=== PATIENT | female | born 1965 ===

== ENCOUNTER 2020-04-04 10:18 | Outpatient (REF) | payer BC, SELFPAY ==
[2020-04-04 14:15] LABS: Alanine Aminotransferase 12 U/L (0-31); Albumin Level 4.1 g/dL (3.5-5.0); Alkaline Phosphatase 62 U/L (39-117); Aspartate Amino Transferase 15 U/L (5-31); Bilirubin Total 0.3 mg/dL (0.0-1.0); Blood Urea Nitrogen 12 mg/dL (9-16); Cholesterol 244 mg/dL; Estimated Glomerular Filt Rate > 60; Glucose Fasting 92 mg/dL (60-99); HDL Cholesterol 52 mg/dL; LDL Cholesterol Calculated 175 mg/dl; Total Protein 6.6 g/dL (6.5-8.0); Triglycerides 86 mg/dL
[2020-04-04 14:25] LABS: Anion Gap 13 (12-20); Calcium 10.2 mg/dL (8.4-10.2); Carbon Dioxide 27 mmol/L (22-29); Chloride 110 mmol/L (96-108); Potassium 4.5 mmol/l (3.3-5.1); Sodium 145 mmol/L (135-145)
== END 2020-04-04 10:19 | disposition home or self-care (01) ==
LOC: HO.WFDLDS 10:18
PROVIDERS: Visit Provider Family Medicine
DX: E78.00 Pure hypercholesterolemia, unspecified (principal); R73.01 Impaired fasting glucose
CPT/HCPCS: 80053; 80061

== ENCOUNTER → 2020-08-10 08:07 | Outpatient (BNVA) | payer BC, SELFPAY | PROVIDERS: PCP Family Medicine; Referring Provider Family Medicine; Visit Provider Student in an Organized Health Care Education/Training Program ==

== ENCOUNTER 2020-08-29 09:36 | Outpatient (REF) | payer BC, SELFPAY ==
--- NOTE | ~2020-08-29 | XR_ITS ---
EXAMINATION: XR KNEE, LEFT CLINICAL INFORMATION: Osteoarthritis COMPARISON: Previous x-ray June 2018 and February 2017 TECHNIQUE: Four views of the left knee. FINDINGS: Bone alignment is normal. No fracture or dislocation is seen. There are 2 laterally placed screws in the tibial plateau. There is a cement seen in the lateral tibial plateau and proximal lateral tibial metaphysis. This appears unchanged from previous exam. The joint spaces are normal. There is no joint effusion. XR/XR knee LT 3V IMPRESSION: Stable postsurgical changes to the knee.
--- NOTE | ~2020-08-29 | XR_ITS ---
EXAMINATION: BILATERAL HAND X-RAY CLINICAL INFORMATION: Primary osteoarthritis COMPARISON: Previous x-ray February 2017 TECHNIQUE: 3 views of each hand FINDINGS: Right: Bone alignment is normal. No fracture or dislocation is seen. There is arthritis at the DIP joint with joint space narrowing and osteophyte formation. There are small osteophytes at the DIP joint of the second and third fingers as well. Joint spaces are otherwise normal. Soft tissues are normal. Left: Bone alignment is normal. No fracture or dislocation is seen. There are small osteophytes at the DIP joints of the second, third and fifth fingers. Joint spaces are otherwise normal. Soft tissues are normal. XR/XR hand RT min 3V IMPRESSION: Arthritis at the DIP joints, right greater than left.
--- NOTE | ~2020-08-29 | XR_ITS ---
EXAMINATION: XR CERVICAL SPINE CLINICAL INFORMATION: Spondylosis COMPARISON: Previous exam May 2017 TECHNIQUE: 3 views of the cervical spine were obtained. FINDINGS: Bone alignment is normal. No fracture or dislocation is seen. There is degenerative spondylosis and degenerative disc disease at C5-C6. Disc spaces are otherwise normal. Prevertebral soft tissues are normal. XR/XR cervical spine 2V IMPRESSION: Degenerative changes at C5-C6.
--- NOTE | ~2020-08-29 | XR_ITS ---
EXAMINATION: BILATERAL HAND X-RAY CLINICAL INFORMATION: Primary osteoarthritis COMPARISON: Previous x-ray February 2017 TECHNIQUE: 3 views of each hand FINDINGS: Right: Bone alignment is normal. No fracture or dislocation is seen. There is arthritis at the DIP joint with joint space narrowing and osteophyte formation. There are small osteophytes at the DIP joint of the second and third fingers as well. Joint spaces are otherwise normal. Soft tissues are normal. Left: Bone alignment is normal. No fracture or dislocation is seen. There are small osteophytes at the DIP joints of the second, third and fifth fingers. Joint spaces are otherwise normal. Soft tissues are normal. XR/XR hand LT min 3V IMPRESSION: Arthritis at the DIP joints, right greater than left.
[2020-08-29 10:18] LABS: MANUAL DIFF FLAG NO
[2020-08-29 10:21] LABS: Basophils Percent Auto 0.2 % (0-2); Eosinophils Absolute Auto 0.1 X10*3/uL (0.0-0.4); Eosinophils Percent Auto 1.9 % (0-4); Hematocrit 42.1 % (37-47); Hemoglobin 13.8 g/dl (12.0-16.0); Lymphocytes Absolute Auto 1.9 X10*3/uL (1.2-4.9); Lymphocytes Percent Auto 45.2 % (20-40); Mean Corpuscular HGB Conc 32.8 g/dl (31.0-35.0); Mean Corpuscular Hemoglobin 31.2 pg (27.0-33.0); Mean Corpuscular Volume 95.2 fL (80-98); Mean Platelet Volume 9.9 fL (9.4-12.3); Monocytes Absolute Auto 0.3 X10*3/uL (0.1-1.2); Neutrophils Absolute Auto 1.9 X10*3/uL (2.0-8.3); Neutrophils Percent Auto 44.7 % (45-73); Platelet Count 232 X10*3/uL (160-400); Red Blood Count 4.42 X10*6/uL (4.20-5.50); Red Cell Distribution Width 12.4 % (11.0-16.0); White Blood Count 4.1 X10*3/uL (4.8-10.8)
[2020-08-29 11:05] LABS: Erythrocyte Sedimentation Rate 8 MM/HR (0-20)
[2020-08-29 11:08] LABS: Alanine Aminotransferase 12 U/L (0-31); Albumin Level 4.1 g/dL (3.5-5.0); Alkaline Phosphatase 63 U/L (39-117); Anion Gap 10 (12-20); Aspartate Amino Transferase 16 U/L (5-31); Bilirubin Total 0.5 mg/dL (0.0-1.0); Blood Urea Nitrogen 12 mg/dL (9-16); C Reactive Protein 0.05 mg/dL (< or = 0.50); Calcium 10.1 mg/dL (8.4-10.2); Carbon Dioxide 29 mmol/L (22-29); Chloride 108 mmol/L (96-108); Cholesterol 251 mg/dL; Estimated Glomerular Filt Rate > 60; Glucose Random 94 mg/dL (60-115); HDL Cholesterol 57 mg/dL; LDL Cholesterol Calculated 170 mg/dl; Potassium 4.2 mmol/L (3.3-5.1); Rheumatoid Factor < 15.0 IU/mL (<15.0); Sodium 143 mmol/L (135-145); Total Protein 6.5 g/dL (6.5-8.0); Triglycerides 121 mg/dL
[2020-08-31 01:57] LABS: Cyclic Citrullinated Peptide <16 UNITS
== END 2020-08-29 09:37 | disposition home or self-care (01) ==
LOC: HO.LAB 09:36
PROVIDERS: PCP Family Medicine; Visit Provider Student in an Organized Health Care Education/Training Program
DX: Z00.00 Encounter for general adult medical examination without abnormal findings (principal); E78.5 Hyperlipidemia, unspecified; M47.812 Spondylosis without myelopathy or radiculopathy, cervical region; M19.041 Primary osteoarthritis, right hand; M19.042 Primary osteoarthritis, left hand; M17.12 Unilateral primary osteoarthritis, left knee
CPT/HCPCS: 36415; 72040; 73130; 73562; 80053; 80061; 85025; 85652; 86140; 86200; 86431

== ENCOUNTER 2020-09-21 15:00 | Outpatient (RCR) | payer BC, SELFPAY ==
--- NOTE | 2020-09-04 15:39 | MHC.OT.OEV ---
[address] [phone] F: [phone] Occupational Therapy Evaluation Diagnosis: R OA Date of Onset: 08/13/18 Date of Surgery: Attending Provider: Regino Ayala Prescribed Treatment: Tatum and neville BENAVIDES Follow Up Appointment: History of Current Condition: Pt reports pain in R hand for over 2 years, particularly in the IPs of the thumb and small finger. Imaging on 08/29/20 reveals arthritis at the DIP joints, right greater than left. 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 Difficulties with toilet hygiene. Sleep: Neck pain with sleeping, no hand pain with sleep Driving: No problems Pain Assessment Pain Score: 6-10/10 Pain Scale Used: Numeric (0 - 10) Pain Location and Description: Achy/throbbing pain; SF/thumb>IF, MF, RF Aggravating Factors: Using R hand; opening jars/containers/crafting Alleviating Factors: Takes tylenol for pain, not using heat/ice for pain Skin and Soft Tissue Assessment Skin and Soft Tissue: Comments: Osteophyte in R SF DIP Sensory Assessment Temperature: WFL Light Touch: WFL Edema Assessment Upper Extremity: Right Impaired Lower Extremity: Comments: R digits DIP: SF 5.3 cm RF 5.0 cm LF 5.3 cm IF 5.3 cm L digits DIP: SF 4.5 cm RF 4.8 cm LF 5.0 cm IF 5.0 cm Circumference of MP D2-D5: 19.0 cm L; 19.7 cm R Dexterity Assessment Dexterity: WFL Comments: functional dexterity test: R 23 sec (functional) , 23 sec (functional) refrained use of SF with R hand AROM(PROM) Strength Wrist Flexion: WFL Extension: WFL Ulnar Deviation: Radial Deviation: Comments: Flexion: Extension: Ulnar Deviation: Radial Deviation: Comments: Thumb Thumb CMC Flexion: Thumb MCP Flexion: Thumb IP Flexion: Radial Abduction: Palmar Abduction: [place] (Kapandji 0-10): Comments: Continue to assess at next appointment Digits Index MCP: PIP: DIP: Long MCP: PIP: DIP: Ring MCP: PIP: DIP: Small MCP: PIP: R 80; L 82 DIP: R 50; L 62 Comments: Gross Grasp: R 49 lbs, L 65 lbs Lateral Pinch: R 5 lbs, L 7 lbs Two-Point Pinch: R 7 lbs, L 8 lbs Three-Jaw Ryne: R 12 lbs, L 10 lbs Comments: R gross grasp refraining use of SF R thumb pain with pinches Patient Education Primary Language: Moldovan Operations Section Manager Required: No Current Knowledge: Understands information with skills for self-management Teaching Method: Demonstration Handouts Verbal Education Needs Identified on Evaluation: ADL's Disease Information Equipment Use Exercise Pain Safety How did patient/family demonstrate learning? Patient demonstrates Patient verbalizes Barriers to Learning: None Readiness for Learning: Accepting Who was educated? Patient Comments: Plan of Care Assessment: Anali is a 54 year old, right hand dominant female who has been having OA pain for over 2 years with the R hand > L, as well as arthritis in the neck and knee. 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 She is independent with ADLs/IADLs, however has recently had an increase in pain with self-care activities and work. She limits the use of her R SF with functional tasks due to pain and has decreased strength in the R hand. She is motivated and receptive to education of OA care. She would benefit from skilled OT to maximize independence and increase functional use of the dominant right hand. STG Duration: 4 weeks Short Term Goals: Ind HEP Ind heat/ice use Ind joint protection techniques Ind orthosis wear and compliance Report pain <3/10 with ADLs/IADLs Pt will incorporate R SF use to carry <10 lbs Gross grasp > 60 lbs LTG Duration: see above Custodial Goals: Frequency and Duration: The patient will be seen 2x/week for 4 weeks Treatment Plan: Therapeutic Exercise Therapeutic Activity Home Exercise Program Splinting Neuro Re-ed Patient Education Desensitization/Sensory Re-ed Edema Control ADL Training Ultrasound NMES Iontophoresis Paraffin Fluidotherapy MHP Cold Packs Joint Mobilization Soft Tissue Mobilization Kinesiotaping Other (see comments) Electronically Signed By: Veronica Ugalde OT/s Reviewed/agree with student documentation: Yes Therapist: Melissa Reed OTR/L Please sign and return to therapist, Thank you for your referral.
--- NOTE | 2020-10-02 08:22 | MHC.OT.DC ---
[address] [phone] F: [phone] Occupational Therapy Discharge Note Provider: Regino Ayala Diagnosis: R OA Date of Evaluation: 09/04/20 Date of Discharge: 10/02/20 Treatments to Date: 3 Cancellations to Date: 4 No Shows to Date: Discharge Status: Improved Function Independent with HEP Patient Elected to Stop Discharge Summary: KHRIS HAD ATTENDED THREE OT SESSIONS. A THUMB OPPOSITION SPLINT WAS FABRICATED AND Pt REPORTS RELIEF WITH USE. SHE STATES SHE HAS LOW PAIN AND TENDERNESS AT THE [facility] [place]. SHE DEMO GOOD UNDERSTANDING OF HER HEP AND HAD EMERGING SELF MANAGEMENT SKILLS. KHRIS ELECTED TO DISCHARGE HERSELF FROM OUTPATIENT OT SERVICES, SHE HAD REPORTED THAT ATTENDING TREATMENT SESSIONS WERE DIFFICULT WITH HER WORK SCHEDULE. WILL D/C OT SERVICES AT THIS TIME. Electronically Signed By: TAYLOR BALL OTR/L Reviewed/agree with student documentation: N/A Therapist: Please Sign and return to therapist, thank you for your referral.
== END 2020-10-02 08:23 | disposition other institution (70) ==
LOC: HO.OT 15:00
PROVIDERS: Visit Provider Student in an Organized Health Care Education/Training Program
DX: M19.041 Primary osteoarthritis, right hand (principal)
CPT/HCPCS: 29130; 97018; 97110; 97165; 97760

== ENCOUNTER 2020-09-27 14:00 | Outpatient (RCR) | payer BC, SELFPAY ==
--- NOTE | 2020-09-07 16:31 | MHC.PT.EP ---
[facility] [place] Office [place] Office [place] Office [address] Greg Mcclellan [address] [phone] F: [phone] F: [phone] F: [phone] F: [phone] Physical Therapy Plan of Care Date of Evaluation: 09/07/20 Date of Surgery: NA Diagnosis: SPONDYLOSIS CERVICAL REGION Assessment: Pt IS 54 YO F REFERRED TO PT FROM DR GASTON WITH CERVICAL SPONDYLOSIS. PRESENTS WITH C/O NECK AND UT PAIN WITHOUT REFERRAL OR PARESTHESIA. Pt IS TTP IN THESE AREAS. HAS A SLIGHT FORWARD HEAD AND ROUNDED SHLDERS POSTURE. Pt SHOULD BENEFIT FROM PT TO HELP DECREASE UT/CERV TIGHTNESS AND HELP TO INCREASE UPPER BODY STRENGTH.. OF NOTE, Pt IS BEING SEEN IN OT FOR R HAND AND ALSO C/O L KNEE PAIN (REPORTS HX OF SURGERY IN PAST). ED THAT THIS CAN BE ADDRESSED IN PT IN FUTURE IF NEEDED. Frequency and Duration: The patient will be seen 2X/WK X 6 WKS Short Term Goals: 1. INCREASED POSTURE AWARENESS AND AWARENESS NECK CARE 2. I HEP WITH DC EX PLAN Block Feeder Goals: 1. IMPROVED SPADI 2. DECREASED CERV PAIN AT LEAST 50% WITH ADLS Treatment Plan: Modalities to reduce pain, spasms and effusion. Manual therapy to restore motion and function. Therapeutic exercise to improve strength and flexibility. Neuromuscular re-education for posture and balance. Therapeutic activities to return to functional activities of daily living. Electronically signed by: DELROY FRAZIER PT Please sign and return to therapist. Thank you for your referral.
--- NOTE | 2020-09-28 12:47 | MHC.PT.DC ---
[facility] [place] Office [place] Office [place] Office [address] Greg Mcclellan [address] [phone] F: [phone] F: [phone] F: [phone] F: [phone] Physical Therapy Discharge Report Diagnosis: SPONDYLOSIS CERVICAL REGION Date of Surgery: NA Date of Evaluation: 09/07/20 Date of Discharge: 09/28/20 Treatments to Date: 4 Cancellations to Date: 1 No Shows to Date: Discharge Status: Patient Elected to Stop Discharge Summary: Pt LEFT VOICEMAIL MESSAGE CANCELLING ALL APPOINTMENTS. STATUS UNKNOWN. Electronically signed by: JOSE R PRESLEY PT, DPT Please sign and return to therapist. Thank you for your referral.
== END 2020-09-28 16:16 | disposition other institution (70) ==
LOC: HO.PT 14:00
PROVIDERS: PCP Family Medicine; Visit Provider Student in an Organized Health Care Education/Training Program
DX: M47.812 Spondylosis without myelopathy or radiculopathy, cervical region (principal)
CPT/HCPCS: 97110; 97140; 97161

== ENCOUNTER 2021-08-20 08:43 | Outpatient (REF) | payer BC, SELFPAY ==
--- NOTE | ~2021-08-20 | MM_ITS ---
EXAMINATION: MM SCREENING DIGITAL BREAST TOMOSYNTHESIS, BILATERAL CLINICAL INFORMATION: Screening. Asymptomatic. The lifetime risk of breast cancer based on the Tyrer-Cuzick Model is 7%. COMPARISON: Mammography: 05/26/2019 (new baseline) TECHNIQUE: Digital breast tomosynthesis is performed in both the craniocaudal and mediolateral oblique views along with computer-aided detection (CAD). Synthesized 2D images are generated from the tomosynthesis. FINDINGS: There are scattered areas of fibroglandular density (ACR BI-RADS breast composition Category b). There are no significant masses, abnormal calcifications, or other abnormalities. Scattered bilateral asymmetries are similar to the new baseline exam. The axilla and skin contours are unremarkable. No significant changes. MM/MM tomosynthesis screening BI IMPRESSION: There are no significant changes from prior new baseline study. ASSESSMENT: BI-RADS 2: Benign RECOMMENDATION: Routine annual mammography screening. This patient's information was entered into a reminder system with a target due date for their next mammogram.
== END 2021-08-20 08:44 | disposition home or self-care (01) ==
LOC: HO.MAMMO 08:43
PROVIDERS: PCP Family Medicine; Visit Provider Family Medicine
DX: Z12.31 Encounter for screening mammogram for malignant neoplasm of breast (principal)
CPT/HCPCS: 77061; 77063; 77065; 77067

== ENCOUNTER 2021-12-23 09:11 | Outpatient (REF) | payer BC, SELFPAY ==
[2021-12-26 18:26] LABS: TS Negative Control Passed; TS Panel A 0; TS Panel B 1; TS Positive Control Passed; TSpotTB Negative (Negative)
== END 2021-12-23 09:12 | disposition home or self-care (01) ==
LOC: HO.LAB 09:11
PROVIDERS: PCP Family Medicine; Visit Provider Family Medicine
DX: Z11.1 Encounter for screening for respiratory tuberculosis (principal)
CPT/HCPCS: 36415; 86481

== ENCOUNTER 2022-03-17 06:37 | Outpatient (REF) | payer BC, SELFPAY ==
[2022-03-17 07:21] LABS: Appearance Urine Cloudy; Color Urine Yellow; Glucose Urine UA Negative (Negative); Leukocyte Esterase Urine Negative (Negative); Nitrite Urine Negative (Negative); PH 5.5 (5.0-9.0); Specific Gravity - Urine >= 1.030 (1.005-1.025); Urine Blood Negative (Negative); Urine Ketones Negative (Negative); Urine Protein Negative (Neg-Trace)
[2022-03-17 08:06] LABS: Alanine Aminotransferase 14 U/L (0-31); Albumin Level 4.1 g/dL (3.5-5.0); Alkaline Phosphatase 56 U/L (39-117); Anion Gap 12 (12-20); Aspartate Amino Transferase 15 U/L (5-31); Bilirubin Total < 0.2 mg/dL (0.0-1.0); Blood Urea Nitrogen 15 mg/dL (9-16); Calcium 10.6 mg/dL (8.4-10.2); Carbon Dioxide 26 mmol/L (22-29); Chloride 110 mmol/L (96-108); Cholesterol 263 mg/dL; Estimated Glomerular Filt Rate > 60; Glucose Fasting 99 mg/dL (60-99); HDL Cholesterol 55 mg/dL; LDL Cholesterol Calculated 193 mg/dl; Potassium 4.4 mmol/L (3.3-5.1); Sodium 144 mmol/L (135-145); Total Protein 6.5 g/dL (6.5-8.0); Triglycerides 78 mg/dL
[2022-03-17 09:07] LABS: Creatinine Urine 189.95 mg/dL; Microalbum/Creatinine Ratio Ur 7.3 ug/mg cr
== END 2022-03-17 06:38 | disposition home or self-care (01) ==
LOC: HO.LAB 06:37
PROVIDERS: PCP Family Medicine; Visit Provider Family Medicine
DX: Z00.00 Encounter for general adult medical examination without abnormal findings (principal); I10 Essential (primary) hypertension
CPT/HCPCS: 36415; 80053; 80061; 81003; 82043; 84443

== ENCOUNTER 2022-04-15 | Outpatient (REF) | payer BC, SELFPAY ==
--- NOTE | ~2022-04-15 | XR_ITS ---
EXAMINATION: XR KNEE, LEFT XR BILATERAL KNEE STANDING CLINICAL INFORMATION: Pain. COMPARISON: None. TECHNIQUE: Bilateral AP knee standing. Left knee 2 views. FINDINGS: Bilateral AP Knee Standing: The the medial and lateral compartment joint space both knees are maintained normal. There are solitary screws traversing the left proximal tibia with cement stabilizing proximal tibial fracture. No new acute fracture or bony abnormality seen. Left Knee: The patellofemoral compartment joint space is maintained normal. The distal femoral condyles and the proximal tibial plateau alignment is normal. Again visualized are 2 screws and cement in the proximal tibia for an old intervention. XR/XR knee LT 2V IMPRESSION: Stable left lateral inserted proximal tibial screws and proximal tibial cement compared to 08/29/2020. No new findings.
--- NOTE | ~2022-04-15 | XR_ITS ---
EXAMINATION: XR KNEE, LEFT XR BILATERAL KNEE STANDING CLINICAL INFORMATION: Pain. COMPARISON: None. TECHNIQUE: Bilateral AP knee standing. Left knee 2 views. FINDINGS: Bilateral AP Knee Standing: The the medial and lateral compartment joint space both knees are maintained normal. There are solitary screws traversing the left proximal tibia with cement stabilizing proximal tibial fracture. No new acute fracture or bony abnormality seen. Left Knee: The patellofemoral compartment joint space is maintained normal. The distal femoral condyles and the proximal tibial plateau alignment is normal. Again visualized are 2 screws and cement in the proximal tibia for an old intervention. XR/XR knee standing BI IMPRESSION: Stable left lateral inserted proximal tibial screws and proximal tibial cement compared to 08/29/2020. No new findings.
== END 2022-04-15 00:01 | disposition home or self-care (01) ==
LOC: HO.HOSX
PROVIDERS: Visit Provider Physician Assistant
DX: M25.562 Pain in left knee (principal)
CPT/HCPCS: 73560; 73565

== ENCOUNTER 2022-06-27 07:54 | Outpatient (REF) | payer BC, SELFPAY ==
[2022-06-27 09:06] LABS: Cholesterol 246 mg/dL; HDL Cholesterol 61 mg/dL; LDL Cholesterol Calculated 163 mg/dl; Triglycerides 110 mg/dL
== END 2022-06-27 07:55 | disposition home or self-care (01) ==
LOC: HO.LAB 07:54
PROVIDERS: PCP Family Medicine; Visit Provider Family Medicine
DX: Z00.00 Encounter for general adult medical examination without abnormal findings (principal)
CPT/HCPCS: 36415; 80061

== ENCOUNTER 2022-08-21 07:54 | Emergency (ER) | payer BC, SELFPAY ==
--- NOTE | ~2022-08-21 | CT_ITS ---
EXAMINATION: CT ABDOMEN AND PELVIS WITH CONTRAST CLINICAL INFORMATION: Elevated lipase with abdominal pain and vomiting COMPARISON: None TECHNIQUE: Multidetector volumetric images were obtained from the superior aspect of the liver through the pubic symphysis following administration 85 mL of Omnipaque 350 intravenous contrast. Sagittal and coronal reformatted images were obtained on the technologist's workstation. Oral contrast: No This CT examination was performed using dose optimization techniques as appropriate, variously including the following: *Automated exposure control *Adjustment of mA and/or kV according to patient size (this includes techniques or standardized protocols for targeted exams where dose is matched to indication/reason for exam; i.e. extremities or head) *Use of iterative reconstruction technique DLP: 593 mGy-cm FINDINGS: LUNG BASES: The visualized lung bases are unremarkable. LIVER, GALLBLADDER, AND BILIARY TREE: The liver is normal in size, shape, and attenuation. Multiple benign appearing simple cysts are present in the liver with the largest measuring 2.4 cm. The smaller cysts are indeterminate because of their tiny size. There is one liver mass seen in the right lobe of the liver just beneath the diaphragm that measures 1.3 cm and does not measure water density and has a punctate calcification associated with it. This could represent a hemangioma but is indeterminate. No other focal hepatic lesion is seen. No biliary ductal dilatation is present. The gallbladder is unremarkable with no evidence of radiopaque gallstones, gallbladder wall thickening, or obvious pericholecystic inflammatory changes. PANCREAS: Unremarkable. SPLEEN: Unremarkable. ADRENAL GLANDS: Unremarkable. KIDNEYS AND URETERS: The kidneys are normal in size, shape, and attenuation. Small punctate 1 to 2 mm nonobstructing left lower pole renal calculus (3:36). No hydronephrosis, hydroureter, or additional calculi seen. No perinephric stranding. Benign Bosniak class I 1.5 cm right upper pole renal cyst which needs no additional imaging or follow-up. No solid renal masses. BLADDER: Unremarkable. GASTROINTESTINAL TRACT: The small and large bowel are unremarkable aside from scattered colonic diverticula without diverticulitis. The appendix is unremarkable. ABDOMINAL WALL: No significant hernia is appreciated. LYMPH NODES: No retroperitoneal lymphadenopathy. VASCULAR: The aorta and iliofemoral vessels are unremarkable. The celiac SMA and STEVEN are patent. Single renal arteries present bilaterally which are unremarkable. Phleboliths are noted in the left gonadal vein. Marked phleboliths are present in the pelvis PELVIC VISCERA: Uterus does not appear to be present. An abnormal adnexal mass is not seen. OSSEOUS STRUCTURES: Marked degenerative changes are seen at L5-S1 where there is a grade 1 anterolisthesis and bilateral L5 pars defects. CT/CT abdomen pelvis w IV con IMPRESSION: A cause for the patient's abdominal pain and elevated vomiting has not been found. Incidental note made of: 1. Multiple benign hepatic cysts. 2. 1.3 cm indeterminate mass in the right lobe of the liver. This could represent a hemangioma but is indeterminate. MRI would be the best test to provide an accurate diagnosis. 3. Small punctate nonobstructing left lower pole renal calculus. 4. Colonic diverticulosis without diverticulitis. 5. Degenerative changes L5-S1 with grade 1 anterolisthesis and bilateral L5 pars defects. Fleischner guidelines were followed.
[2022-08-21 08:07] VITALS: BP 149/84; PULSE 62; RESP 18; TEMP 36.8; O2SAT 99; BMI 27.2
--- NOTE | 2022-08-21 08:13 | ED_ITS ---
HPI - Abdominal Pain General Chief Complaint: Abdominal Pain Stated Complaint: Vomiting Time Seen by Provider: 08/21/22 08:09 Source: patient Mode of arrival: ambulatory Limitations: no limitations History of Present Illness HPI narrative: This is a 56-year-old female with a history of high cholesterol, anxiety, de pression who presents to the ER with complaints of generalized abdominal pain with multiple episodes of vomiting which began at 02:00 in addition to headache and chills. Patient denies diarrhea. She did move her bowels this morning and was normal. No urinary symptoms, fever, chest pain . Patient denies previous abdominal surgery. No sick contacts or recent travel. Patient reports multiple episodes of vomiting and unable to maintain p.o.. Emesis is nonbilious and nonbloody. Patient is unsure if she ate something that upset her stomach as she did have some fish last evening Related Data Home Medications Medication Instructions Recorded Confirmed biotin PO 04/15/22 06/30/22 Previous Rx's Medication Instructions Recorded atorvastatin 40 mg tablet 40 mg PO BEDTIME 90 days #90 tabs 06/30/22 buspirone 5 mg tablet 5 mg PO BEDTIME 30 days #30 tabs 06/30/22 fluoxetine 20 mg capsule 20 mg PO DAILY 90 days #90 caps 06/30/22 ondansetron 4 mg disintegrating 4 mg PO Q6H PRN nausea and 08/21/22 tablet vomiting #15 tabs Allergies Allergy/AdvReac Type Severity Reaction Status Date / Time No Known Allergies Allergy Verified 07/29/22 17:05 [No Known Allergies*] Review of Systems Review of Systems Yes all other systems are reviewed and are negative Constitutional: Reports no additional constitutional complaints, Denies body ache(s), Reports chills, Denies fever(s), Reports headache(s) and Denies weakness Eyes: Reports no additional eye complaints and Denies change in vision Reports system reviewed and no additional complaints, except as documented, Denies dizziness, Reports headache(s), Denies nasal congestion, Denies nasal d ischarge and Denies neck pain Cardiovascular: Reports no additional cardiovascular complaints, Denies chest pain, Denies leg edema and Denies dyspnea Respiratory: Reports no additional respiratory complaints, Denies cough and Denies dyspnea Gastrointestinal: Reports no additional gastrointestinal complaints, Reports abdominal pain, Denies diarrhea, Reports nausea and Reports vomiting Genitourinary: Reports no additional female genitourinary complaints and Denies urinary incontinence Musculoskeletal: Reports no additional musculoskeletal complaints, Denies back pain, Denies arthralgias, Denies joint swelling, Denies neck pain, Denies numbness and Denies tingling Skin/Breast: Reports system reviewed and no additional complaints, except as docu and Denies rash Reports system reviewed and no additional complaints, except as documented, Denies dizziness, Reports headache(s), Denies numbness, Denies tingling and Denies weakness PMFSH Past Medical History Attestation statement: The following information was validated with the patient. Source: old records reviewed and nursing notes reviewed Medical History Constipation Hypotension Osteoarthritis Spondylosis without myelopathy or radiculopathy, lumbar region Surgical History H/O tubal ligation H/O: hysterectomy (~2014) History of lumpectomy of left breast History of open reduction and internal fixation (ORIF) procedure (~2016) Hx of tonsillectomy Family History Family History Father Stomach cancer Mother Diabetes HTN (hypertension) Social History Social History Housing: Other Alcohol intake: current Patient Tobacco Use Status: Never used Tobacco Smoked in Last 30 Days: No e-Cigarette/Vaping Use: Never Used Second Hand Smoke Exposure: Yes Substance Use Type: Marijuana Advance Directives: Yes Advance Directives Information Provided: Yes Advance Directives on File: No service: No Current occupational status: employed 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 Current occupational exposures/hazards: No Cognitive needs: No Hearing needs: No Vision needs: No Physical Exam ED Vital Signs: Vital Signs - 24 hr 08/21/22 08:07 08/21/22 12:37 08/21/22 15:04 Temperature 98.2 F 99.0 F 99.5 F Pulse Rate 62 66 65 Respiratory Rate 18 14 12 Blood Pressure 149/84 H 135/81 131/57 L Pulse Oximetry 99 98 97 Oxygen Delivery Method Room Air Room Air Room Air BMI result Body Mass Index 27.2 Const General: cooperative, healthy appearing, comfortable and no acute distress Orientation/consciousness: patient oriented x3 Limitations: no limitations HENMT Head: Yes normal to inspection Ears: hearing grossly normal bilaterally Eyes General: appearance normal, both eyes and all related structures Pupils: Equal, round and reactive pupils present Neck Neck: Yes normal visual inspection, Yes full ROM, Yes no lymphadenopathy and Yes no meningeal signs Chest Chest palpation & inspection: normal inspection of the chest Resp Effort & Inspection: normal respiratory effort Auscultation: clear to auscultation bilaterally Cardio Rate: regular rate Rhythm: regular rhythm Peripheral pulses: Peripheral pulses 2+ throughout GI Inspection: Yes normal to inspection Palpation (GI): Soft to palpation and nontender Auscultation: normal bowel sounds General: Yes no CVA tenderness Back/Spine/Pelvis Back: no CVA tenderness Thoracic/Lumbar Spine: thoracic and lumbar spine normal to inspection Skin General skin exam: no rashes or lesions noted Neuro General: patient oriented x3, moves all extremities and no meningeal signs Cranial nerves: Yes Equal, round and reactive pupils present Cognition (Neuro): normal cognition Gait exam (Neuro): Normal gait present Extrem General: Yes normal to inspection, Yes no pedal edema and Yes no calf tenderness Course Course Course Narrative: Patient with elevated lipase and continued abdominal pain and vomiting. Will check CT scan to rule out acute pancreatitis Reevaluation(s) Reevaluation #1: 1300-Patient reports continued pain/vomiting. Refusing IV narcotics. Will give benadryl/reglan. CT abdomen/pelvis shows no acute finding. Will re-assess. Reevaluation #2: 1600-Patient reports able to drink some sips of ruslan ariane. Still having some mild nausea. No additional vomiting. Offered additional antiemetic but patient would prefer to go home with antiemetics. Likely viral syndrome. Recommend clear liquid diet and advance it as tolerated. Reviewed worrisome signs and symptoms of when to return to the emergency room. Comfortable plan for discharge home. Medical Decision Making Medical Decision Making [facility] Narrative: 56-year-old female here with diffuse abdominal pain, vomiting, headache and chills which began at 02:00 this morning On arrival abdomen is soft and nontender. Vitals are stable. Patient reports unable to maintain p.o. Will obtain labs, UA, viral testing. Patient will receive IV fluids and antiemetics Differential Diagnosis Differential Diagnoses: The differential diagnosis associated with the presentation includes Gastroenteritis, viral syndrome, pancreatitis Less likely acute abdominal pathology Lab Data MDM Lab Attestation statement: I reviewed the patient's lab results. 08/21/22 08:13 08/21/22 08:13 Labs: Lab Results 08/21/22 08/21/22 08/21/22 Range/Units 08:13 08:29 08:49 WBC 7.8 (4.8-10.8) X10*3/uL RBC 4.50 (4.20-5.50) X10*6/uL Hgb 14.1 (12.0-16.0) g/dl Hct 41.6 (37.0-47.0) % MCV 92.4 (80.0-98.0) fL MCH 31.3 (27.0-33.0) pg MCHC 33.9 (31.0-35.0) g/dl RDW 12.2 (11.0-16.0) % Plt Count 224 (160-400) X10*3/uL MPV 10.2 (9.4-12.3) fL Immature Gran % (Auto) 0.1 (0.0-0.4) % Neut % (Auto) 80.6 H (45-73) % Lymph % (Auto) 16.3 L (20-40) % [place] % (Auto) 2.9 (2-11) % Eos % (Auto) 0.0 (0-4) % Baso % (Auto) 0.1 (0-2) % Lymph # (Auto) 1.3 (1.2-4.9) X10*3/uL [place] # (Auto) 0.2 (0.1-1.2) X10*3/uL Eos # (Auto) 0.0 (0.0-0.4) X10*3/uL Baso # (Auto) 0.0 (0.0-0.2) X10*3/uL Abs Immat Gran (auto) 0.01 (0.00-0.03) X10*3/uL Absolute Neuts (auto) 6.3 (2.0-8.3) x10*3/uL Absolute Nucleated RBC 0.000 (0.0-0.012) X10*3/uL Nucleated RBC % (auto) 0.0 (0.0-0.2) /100WBC Sodium 143 (135-145) mmol/L Potassium 4.4 (3.3-5.1) mmol/L Chloride 110 H (96-108) mmol/L Carbon Dioxide 27 (22-29) mmol/L Anion Gap 10 L (12-20) BUN 10 (9-16) mg/dL Creatinine 0.81 (0.5-1.4) mg/dL Estim Creat Clear Calc 82.9 Estimated GFR > 60 Random Glucose 188 H (60-115) mg/dL Calcium 9.3 D (8.4-10.2) mg/dL Total Bilirubin 0.5 (0.0-1.0) mg/dL AST 16 (5-31) U/L ALT 16 (0-31) U/L Alkaline Phosphatase 52 (39-117) U/L Total Protein 6.0 L (6.5-8.0) g/dL Albumin 3.9 (3.5-5.0) g/dL Lipase 204 H (8-78) U/L Influenza Type A (PCR) NEGATIVE (Negative) Influenza Type B (PCR) NEGATIVE (Negative) RSV RNA Qual (PCR) NEGATIVE (Negative) SARS-CoV-2 RNA (RT-PCR) NEGATIVE (Negative) Independent Interpretation I performed an independent interpretation of an: CT Scan Interpretation: I independetely reviewed the CT scan and agree with the radiologist repor t Radiology Impression Discussion of test interpretation with radiology: I have reviewed the radiologist's reading. Radiologist Impression: [place] [id number] CT Scan Report Signed Patient: Anali San I MR#: [id number] : 1965 Acct:[id number] Age/Sex: 56 / F ADM Date: 08/21/22 Loc: HO.ED Attending Dr: Ordering Physician: Rebeka Stokes NP Date of Service: 08/21/22 Procedure(s): CT abdomen pelvis w IV con Accession Number(s): [id number] cc: Rebeka Stokes NP~ EXAMINATION: CT ABDOMEN AND PELVIS WITH CONTRAST? CLINICAL INFORMATION: Elevated lipase with abdominal pain and vomiting? COMPARISON: None? TECHNIQUE: Multidetector volumetric images were obtained from the superior aspect of the liver through the pubic symphysis following administration 85 mL of Omnipaque 350 intravenous contrast. Sagittal and coronal reformatted images were obtained on the technologist's workstation.? Oral contrast: No This CT examination was performed using dose optimization techniques as appropriate, variously including the following: *Automated exposure control *Adjustment of mA and/or kV according to patient size (this includes techniques or standardized protocols for targeted exams where dose is matched to indication/reason for exam; i.e. extremities or head) *Use of iterative reconstruction technique DLP: 593 mGy-cm FINDINGS: LUNG BASES: The visualized lung bases are unremarkable.? LIVER, GALLBLADDER, AND BILIARY TREE: The liver is normal in size, shape, and attenuation. Multiple benign appearing simple cysts are present in the liver with the largest measuring 2.4 cm. The smaller cysts are indeterminate because of their tiny size. There is one liver mass seen in the right lobe of the liver just beneath the diaphragm that measures 1.3 cm and does not measure water density and has a punctate calcification associated with it. This could represent a hemangioma but is indeterminate. No other focal hepatic lesion is seen. No biliary ductal dilatation is present. The gallbladder is unremarkable with no evidence of radiopaque gallstones, gallbladder wall thickening, or obvious pericholecystic inflammatory changes.? PANCREAS: Unremarkable.? SPLEEN: Unremarkable.? ADRENAL GLANDS: Unremarkable.? KIDNEYS AND URETERS: The kidneys are normal in size, shape, and attenuation. Small punctate 1 to 2 mm nonobstructing left lower pole renal calculus (3:36). No hydronephrosis, hydroureter, or additional calculi seen. No perinephric stranding.? Benign Bosniak class I 1.5 cm right upper pole renal cyst which needs no additional imaging or follow-up. No solid renal masses. BLADDER: Unremarkable.? GASTROINTESTINAL TRACT: The small and large bowel are unremarkable aside from scattered colonic diverticula without diverticulitis. The appendix is unremarkable.? ABDOMINAL WALL: No significant hernia is appreciated.? LYMPH NODES: No retroperitoneal lymphadenopathy. VASCULAR: The aorta and iliofemoral vessels are unremarkable. The celiac SMA and STEVEN are patent. Single renal arteries present bilaterally which are unremarkable. Phleboliths are noted in the left gonadal vein. Marked phleboliths are present in the pelvis PELVIC VISCERA: Uterus does not appear to be present. An abnormal adnexal mass is not seen.? OSSEOUS STRUCTURES: Marked degenerative changes are seen at L5-S1 where there is a grade 1 anterolisthesis and bilateral L5 pars defects.? CT/CT abdomen pelvis w IV con IMPRESSION: A cause for the patient's abdominal pain and elevated vomiting has not been found. ? Incidental note made of: 1.? Multiple benign hepatic cysts. 2.? 1.3 cm indeterminate mass in the right lobe of the liver. This could represent a hemangioma but is indeterminate. MRI would be the best test to provide an accurate diagnosis. 3.? Small punctate nonobstructing left lower pole renal calculus. 4.? Colonic diverticulosis without diverticulitis. 5.? Degenerative changes L5-S1 with grade 1 anterolisthesis and bilateral L5 pars defects. ? Medications Administered Discontinued Medications Generic Name Dose Route Start Last Admin Trade Name Freq PRN Reason Stop Dose Admin Diphenhydramine HCl 25 mg 08/21/22 13:01 08/21/22 13:08 Diphenhydramine Hcl 50 Mg/Ml Vial IVPUSH 08/21/22 13:02 25 mg ONCE ONE Administration Sodium Chloride 1,000 mls @ 999 mls/hr 08/21/22 08:14 08/21/22 09:14 Ns IV 08/21/22 09:14 Infused .Q1H1M STA Infusion Iohexol 100 ml 08/21/22 10:44 08/21/22 10:44 Iohexol 350 Mg/Ml 100 Ml Infus..Btl IV 08/21/22 10:45 85 ml ONCE ONE Administration Ketorolac Tromethamine 30 mg 08/21/22 10:22 08/21/22 10:45 Ketorolac Tromethamine 30 Mg/Ml Vial IVPUSH 08/21/22 10:23 30 mg ONCE ONE Administration Metoclopramide HCl 10 mg 08/21/22 13:01 08/21/22 13:08 Metoclopramide Hcl 10 Mg/2 Ml Vial IVPUSH 08/21/22 13:02 10 mg ONCE ONE Administration Ondansetron HCl 4 mg 08/21/22 08:14 08/21/22 08:23 Ondansetron Hcl 4 Mg/2 Ml Vial IVPUSH 08/21/22 08:15 4 mg ONCE ONE Administration Ondansetron HCl 4 mg 08/21/22 10:46 08/21/22 10:54 Ondansetron Hcl 4 Mg/2 Ml Vial IVPUSH 08/21/22 10:47 4 mg ONCE ONE Administration Discharge Plan Discharge Clinical Impression: Gastroenteritis Patient Disposition: Home, Self-Care Instructions: Gastroenteritis (ED) Additional Instructions: Testing for flu and COVID are negative. Lab work is normal. Your CT scan shows no acute finding. This is likely viral Start with clear liquids and advance her diet as tolerated return for any worsening abdominal pain, intractable vomiting, fever Prescriptions: New ondansetron 4 mg tablet,disintegrating 4 mg PO Q6H PRN (Reason: nausea and vomiting) Qty: 15 0RF No Action atorvastatin 40 mg tablet 40 mg PO BEDTIME 90 Days Qty: 90 2RF buspirone 5 mg tablet 5 mg PO BEDTIME 30 Days Qty: 30 2RF fluoxetine 20 mg capsule 20 mg PO DAILY 90 Days Qty: 90 3RF biotin PO Referrals: Blaise Esparza MD [Primary Care Provider] - 10 days Stand Alone Forms: Work/School Release Interventions: ED Discharge Assessment Last Done: 08/21/22 16:23 Discharge Date/Time: 08/21/22 16:23
[2022-08-21 08:16] LABS: MANUAL DIFF FLAG NO
[2022-08-21 08:21] LABS: Basophils Percent Auto 0.1 % (0-2); Hematocrit 41.6 % (37.0-47.0); Hemoglobin 14.1 g/dl (12.0-16.0); Imm Gran Abs Auto 0.01 X10*3/uL (0.00-0.03); Imm Gran Pct Auto 0.1 % (0.0-0.4); Lymphocytes Absolute Auto 1.3 X10*3/uL (1.2-4.9); Lymphocytes Percent Auto 16.3 % (20-40); Mean Corpuscular HGB Conc 33.9 g/dl (31.0-35.0); Mean Corpuscular Hemoglobin 31.3 pg (27.0-33.0); Mean Corpuscular Volume 92.4 fL (80.0-98.0); Mean Platelet Volume 10.2 fL (9.4-12.3); Monocytes Absolute Auto 0.2 X10*3/uL (0.1-1.2); Monocytes Percent Auto 2.9 % (2-11); Neutrophils Absolute Auto 6.3 x10*3/uL (2.0-8.3); Neutrophils Percent Auto 80.6 % (45-73); Platelet Count 224 X10*3/uL (160-400); Red Cell Distribution Width 12.2 % (11.0-16.0); White Blood Count 7.8 X10*3/uL (4.8-10.8)
[2022-08-21] MEDS: ondansetron HCL 4 MG/2 ML VIAL IVPUSH ×2 (08:23→10:54)
[2022-08-21] MEDS: 0.9 % Sodium Chloride 1,000 ML 999 ML IV (08:24)
[2022-08-21 09:19] LABS: Influenza A PCR NEGATIVE (Negative); Influenza B PCR NEGATIVE (Negative); Resp Syncy Virus RNA Qual PCR NEGATIVE (Negative); SARS COV2 PCR INHOUSE NEGATIVE (Negative)
[2022-08-21 10:01] LABS: Anion Gap 10 (12-20)
[2022-08-21 10:05] LABS: Alanine Aminotransferase 16 U/L (0-31); Albumin Level 3.9 g/dL (3.5-5.0); Alkaline Phosphatase 52 U/L (39-117); Aspartate Amino Transferase 16 U/L (5-31); Bilirubin Total 0.5 mg/dL (0.0-1.0); Blood Urea Nitrogen 10 mg/dL (9-16); Calcium 9.3 mg/dL (8.4-10.2); Carbon Dioxide 27 mmol/L (22-29); Chloride 110 mmol/L (96-108); Creatinine Clr Calc Pharmacy 82.9; Estimated Glomerular Filt Rate > 60; Glucose Random 188 mg/dL (60-115); Lipase 204 U/L (8-78); Potassium 4.4 mmol/L (3.3-5.1); Sodium 143 mmol/L (135-145)
[2022-08-21] MEDS: iohexoL 350 MG/ML 100 ML INFUS..BTL IV (10:44)
[2022-08-21] MEDS: Ketorolac Tromethamine 30 MG/ML VIAL IVPUSH (10:45)
[2022-08-21 12:37] VITALS: BP 135/81; PULSE 66; RESP 14; TEMP 37.2; O2SAT 98
[2022-08-21] MEDS: Metoclopramide HCl 10 MG/2 ML VIAL IVPUSH (13:08)
[2022-08-21] MEDS: diphenhydrAMINE HCL 50 MG/ML VIAL 25 MG IVPUSH (13:08)
--- NOTE | 2022-08-21 13:10 | PC.NURSE ---
pt medicated for nausea. pt dry heaving at this time.
[2022-08-21 15:04] VITALS: BP 131/57; PULSE 65; RESP 12; TEMP 37.5; O2SAT 97
== END 2022-08-21 16:23 | disposition home or self-care (01) ==
PROVIDERS: Nurse Practitioner Family; Emergency Provider Emergency Medicine Emergency Medical Services; PCP Family Medicine
DX: K52.9 Noninfective gastroenteritis and colitis, unspecified (principal); Z20.822 Contact with and (suspected) exposure to COVID-19; Z20.828 Contact with and (suspected) exposure to other viral communicable diseases; Z79.899 Other long term (current) drug therapy
CPT/HCPCS: 0241U; 36415; 74177; 80053; 83690; 85025; 96361; 96374; 96375; 96376; 99284; 99285; J1200; J1885; J2405; J2765; Q9967

== ENCOUNTER 2022-09-25 09:18 | Outpatient (REF) | payer BC, SELFPAY ==
--- NOTE | ~2022-09-25 | MM_ITS ---
EXAMINATION: MM SCREENING DIGITAL BREAST TOMOSYNTHESIS, BILATERAL CLINICAL INFORMATION: Screening. Asymptomatic. The lifetime risk of breast cancer based on the Tyrer-Cuzick Model is 12%. COMPARISON: Mammography: 08/20/2021, 05/26/2019 TECHNIQUE: Digital breast tomosynthesis is performed in both the craniocaudal and mediolateral oblique views along with computer-aided detection (CAD). Synthesized 2D images are generated from the tomosynthesis. FINDINGS: There are scattered areas of fibroglandular density (ACR BI-RADS breast composition Category b). Parenchymal pattern is similar to prior studies and there is no developing density or interval mass or architectural abnormality. Scattered minor asymmetries are stable. No abnormal calcifications. The axilla and skin contours are unremarkable. No significant changes from prior studies. MM/MM tomosynthesis screening BI IMPRESSION: No mammographic evidence of malignancy. ASSESSMENT: BI-RADS 2: Benign RECOMMENDATION: Routine annual mammography screening. This patient's information was entered into a reminder system with a target due date for their next mammogram.
== END 2022-09-25 09:19 | disposition home or self-care (01) ==
LOC: HO.MAMMO 09:18
PROVIDERS: PCP Family Medicine; Visit Provider Family Medicine
DX: Z12.31 Encounter for screening mammogram for malignant neoplasm of breast (principal)
CPT/HCPCS: 77063; 77067

== ENCOUNTER 2023-02-23 14:04 | Outpatient (AMB) | payer SELFPAY ==
--- NOTE | 2023-02-23 14:26 | AM.OFFWIN_ITS ---
Intake Vital Signs 02/23/23 14:30 Height 5 ft 7 in Weight 174 lb BMI 27.2 BP 120/60 Blood Pressure Location Lt brachial Position Sitting Pulse 75 Pulse Source Pulse Oximeter Temp 99 F Temp Source Temporal Artery Scan Pulse Oximetry (%) 75 L Oxygen Delivery Method Room Air Intake Visit Reasons: Est/swelling under right eye Patient Tobacco Use Status: Never used Tobacco Allergies No Known Allergies [No Known Allergies*] Allergy (Verified 02/23/23 14:26) Medication List - Last Reconciled 02/23/23 by Ray Pisano MD atorvastatin 40 mg PO BEDTIME 90 days biotin PO buspirone 5 mg PO BEDTIME 30 days fluoxetine 20 mg PO DAILY 90 days Do you need a note to return to daycare/school/sports/work: No HPI Est/swelling under right eye HPI Details 57-year-old female presents to the [facility] for a sick visit. Patient has a rash on her arms, forearms and face. Blisters are present too. When the rash spread to her eyes she became concerned [facility] Medical History Constipation Hypotension Osteoarthritis Spondylosis without myelopathy or radiculopathy, lumbar region Surgical History H/O tubal ligation H/O: hysterectomy (~2014) History of lumpectomy of left breast History of open reduction and internal fixation (ORIF) procedure (~2016) Hx of tonsillectomy Family History Father Stomach cancer Mother Diabetes HTN (hypertension) Family/Other Breast cancer Social History Housing: Other Alcohol intake: current Patient Tobacco Use Status: Never used Tobacco e-Cigarette/Vaping Use: Never Used Second Hand Smoke Exposure: Yes Substance Use Type: Marijuana service: No Current occupational status: employed 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 There is swelling below the right eyelid. Assessment & Plan Assessment & Plan (1) Contact dermatitis: Code(s): L25.9 - Unspecified contact dermatitis, unspecified cause Plan: Prednisone 60 mg taper. Note for work given. If symptoms not better to follow- up here. Coding Level of Care Code Est Pt Level 3 (33709) Diagnoses Contact dermatitis L25.9
[2023-02-23 14:30] VITALS: BP 120/60; PULSE 75; TEMP 37.2; O2SAT 75; BMI 27.2
== END 2023-02-23 15:00 | disposition home or self-care (01) ==
PROVIDERS: PCP Family Medicine; Visit Provider Internal Medicine
DX: L25.9 Unspecified contact dermatitis, unspecified cause (principal)
CPT/HCPCS: 99213

== ENCOUNTER 2023-04-23 10:06 | Outpatient (AMB) | payer OTHER, SELFPAY ==
--- NOTE | 2023-04-23 12:14 | MHC.OFFWIV ---
Intake Vital Signs 04/23/23 12:19 Height 5 ft 7 in Weight 174 lb BMI 27.2 BP 132/74 Blood Pressure Location Rt brachial Position Sitting Pulse 67 Pulse Source Pulse Oximeter Temp 96.7 F L Temp Source Temporal Artery Scan Pulse Oximetry (%) 98 Oxygen Delivery Method Room Air Intake Visit Reasons: EP lower back rt leg pain Intake Note: Pt is here c/o lower back and bilateral leg pain. Patient Tobacco Use Status: Never used Tobacco Allergies No Known Allergies [No Known Allergies*] Allergy (Verified 02/23/23 14:26) HPI HPI Comments History of Present Illness Details The patient presents to urgent care for evaluation of 2 complaints. The 1st being the right low back pain. She reports that she was helping her Irvin the yd several days ago and believes she strained something. Since then she has had right lower back pain. It has not been responsive to Naprosyn or Tylenol. She is ambulatory but reports pain with movement. No bowel or bladder dysfunction no numbness or tingling. No pain that radiates down her leg. Has secondary complaint, patient reports that she feels very sad and depressed and has been crying all the time, she is crying every day for the past 2 weeks. She reports that she was previously on an antidepressant but took herself off about a year ago because she was feeling well. She does not recall which had been taking. She states that there has been some situational problems recently and some life stressors. She denies feelings of self-harm. [facility] Medical History Constipation Hypotension Osteoarthritis Spondylosis without myelopathy or radiculopathy, lumbar region Surgical History H/O tubal ligation H/O: hysterectomy (~2014) History of lumpectomy of left breast History of open reduction and internal fixation (ORIF) procedure (~2016) Hx of tonsillectomy Family History Father Stomach cancer Mother Diabetes HTN (hypertension) Family/Other Breast cancer Social History Housing: Other Alcohol intake: current Patient Tobacco Use Status: Never used Tobacco e-Cigarette/Vaping Use: Never Used Second Hand Smoke Exposure: Yes Substance Use Type: Marijuana service: No Current occupational status: employed 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 Current occupational exposures/hazards: No Cognitive needs: No Hearing needs: No Vision needs: No Physical Exam Vital Signs: Last Vital Signs Temp 96.7 F L 04/23/23 12:19 Pulse 67 04/23/23 12:19 BP 132/74 04/23/23 12:19 Pulse Ox 98 04/23/23 12:19 Oxygen Delivery Method Room Air 04/23/23 12:19 BMI result Body Mass Index 27.2 Const General: healthy appearing and no acute distress Orientation/consciousness: patient oriented x3 Eyes General: appearance normal, both eyes and all related structures Pupils: Equal, round and reactive pupils present Resp Effort & Inspection: normal respiratory effort and able to speak in complete sentences General: Yes no CVA tenderness Back/Spine/Pelvis Other: Tender to palpation in the right lumbar region paraspinal musculature. No bruising. Back: no CVA tenderness Thoracic/Lumbar Spine: thoracic and lumbar spine normal to inspection and thoraco-lumbar ROM limited Pelvis: no buttock tenderness Neuro General: patient oriented x3 and Normal light touch and pain sensation Cranial nerves: Yes Equal, round and reactive pupils present Assessment & Plan Assessment & Plan (1) Anxiety and depression: Code(s): F41.9 - Anxiety disorder, unspecified; F32.A - Depression, unspecified (2) Low back pain: Code(s): M54.50 - Low back pain, unspecified Plan A/P -low back pain Given presentation of pain, there are no red flag symptoms. Discussed the often recurring/remitting course of lower back pain. Discussed etiology. The patient presents to urgent care for evaluation of acute back pain, likely relating to muscle spasm. I feel that the patient would benefit from a course of muscle relaxant in conjunction with ibuprofen. Patient is agreeable to this plan. Patient is well appearing, ambulatory and stable for outpatient management. Work note given. Depression: Patient will be restarted on fluoxetine. She has follow-up appointment on Thursday with her PCP. aids social worker spoke with her patient declined an assessment. Medications: New cyclobenzaprine 10 mg PO TID PRN 10 tabs 0RF muscle spasm ibuprofen 600 mg PO Q6H PRN 20 tabs 0RF pain Changed From fluoxetine 20 mg PO DAILY 90 days 90 caps 3RF To fluoxetine 20 mg PO DAILY 30 days 30 caps 0RF Coding Level of Care Code Est Pt Level 3 (03590) Diagnoses Anxiety and depression F41.9; F32.A Low back pain M54.50
[2023-04-23 12:19] VITALS: BP 132/74; PULSE 67; TEMP 35.9; O2SAT 98; BMI 27.2
== END 2023-04-23 13:18 | disposition home or self-care (01) ==
PROVIDERS: PCP Family Medicine; Visit Provider Emergency Medicine
DX: F41.9 Anxiety disorder, unspecified (principal); F32.A Depression, unspecified; M54.50 Low back pain, unspecified
CPT/HCPCS: 99213

== ENCOUNTER 2023-04-28 14:47 | Outpatient (AMB) | payer OTHER, SELFPAY ==
--- NOTE | 2023-04-28 14:53 | MHC.PC.OV ---
Vital Signs 04/28/23 14:58 Height 5 ft 7 in Weight 177 lb BMI 27.7 BP 120/80 Blood Pressure Location Rt brachial Position Sitting Respiration 13 Pulse 67 Pulse Source Pulse Oximeter Pulse Oximetry (%) 99 Oxygen Delivery Method Room Air Intake Visit Reasons: Physical Exam Intake Note: Patient is here for a physical, her PCP is Dr. Esparza. Patient is requesting a copy of today's physical for her employment. Patient is also in need of a T-Spot to be added to any lab orders. [employer] Required: No Accompanied by: Self / Same As Patient Allergies No Known Allergies [No Known Allergies*] Allergy (Verified 04/28/23 15:12) Medication List - Last Reconciled 04/28/23 by Maru Rosenthal CNP atorvastatin 40 mg PO BEDTIME 90 days biotin PO buspirone 5 mg PO BEDTIME 30 days cyclobenzaprine 10 mg PO TID PRN fluoxetine 20 mg PO DAILY 30 days ibuprofen 600 mg PO Q6H PRN Tobacco use date assessed: 04/28/23 Dental Screening Dental Screen Date: 04/28/23 Did you have a dental visit in the last 12 months?: Yes Did you have a dental problem in the last 6 months where you did not have access to dental care?: No Was dental information given to patient?: Patient has dentist HPI HPI Comments History of Present Illness Details 57-year-old female presents for an extended physical exam She has past medical history significant for hyperlipidemia, anxiety, and depression. She is admits to taking her medications as prescribed She reports chronic upper and lower back pain. She notes that she was evaluated for back pain at the [facility] [place] [facility] [facility] last week and was prescribed Ibuprofen and Cyclobenzaprine which provides some relief. She reports anxiety and depression symptoms. However, today is a good day, she noted. She notes that she is usually anxious and worry with no apparent trigger. She resumed taking Fluoxetine and Buspirone last Thursday, after 1 year of not taking the medications. She is not followed by a therapist or psychiatrist. She requests T spot lab for her workplace. Her PCP is Dr. Esparza Her last mammogram was in September 2022: Normal She notes that her last colonoscopy was over 10 years ago: had benign polyps removed She states that she had total hysterectomy She notes that she has never had the shingrex vaccines and does not intend to get vaccinated [facility] Medical History Spondylosis without myelopathy or radiculopathy, lumbar region Osteoarthritis Constipation Hypotension Surgical History History of open reduction and internal fixation (ORIF) procedure (~2016) H/O: hysterectomy (~2014) History of lumpectomy of left breast H/O tubal ligation Hx of tonsillectomy Family History Father Stomach cancer Mother Diabetes HTN (hypertension) Sister Breast cancer Social History Household Members: Spouse Housing: House Alcohol intake: current Alcohol intake frequency: holidays/special occasions only Alcohol type: wine Patient Tobacco Use Status: Never used Tobacco e-Cigarette/Vaping Use: Never Used Second Hand Smoke Exposure: Yes Substance Use Type: Marijuana service: No Current occupational status: employed 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 1. Little interest or pleasure in doing things: not at all 2. Feeling down, depressed, or hopeless: several days 3. Trouble falling or staying asleep, or sleeping too much: not at all 4. Feeling tired or having little energy: several days 5. Poor appetite or overeating: nearly every day ( I hardly eat ) 6. Feeling bad about yourself - or that you are a failure or have let yourself or your family down: nearly every day 7. Trouble concentrating on things, such as reading the newspaper or watching television: not at all 8. Moving or speaking so slowly that other people could have noticed. Or the opposite - being so fidgety or restless that you have been moving around a lot more than usual: not at all 9. Thoughts that you would be better off or of hurting yourself in some way: not at all Total score: 8 Depression Screening Interpretation: Positive Depression Screening Follow-up: Existing condition, In treatment and Change in Medication Depression Screening Done: Yes 54270 - PHQ-9 Billing: Yes Source: Developed by Drs. Lamont Gilbert, Lydia Kim, Brandin Singh and colleagues, with an educational francisco from [employer]. Thrive Questionnaire Date Thrive assessed: 04/28/23 I am a: Patient What is your living situation today?: I have a steady place to live Within the past 12 months, did the food you bought not last and you didn't have the money to get more?: Never true Within the past 12 months, did you worry whether your food would run out before you got money to buy more?: Never true Do you have trouble paying for medicines?: No Do you have trouble getting transportation to medical appointments?: No Do you have trouble paying your heating and electricity bill?: No Do you have trouble taking care of your child, family member or friend?: No Do you have trouble with day-to-day activities such as bathing, preparing meals, shopping, managing finances, etc.?: No Are you currently unemployed and looking for a job?: No Are you interested in more education?: No Please select the resources that you would like help with: None Currently or been in a relationship where the following occur: no concerns reported AUDIT C Alcohol Use Questionnaire (AUDIT-C) 1. How often do you have a drink containing alcohol?: Monthly or less (Social holidays) 2. How many drinks containing alcohol do you have on a typical day when you are drinking?: 1 or 2 3. How often do you have six or more drinks on one occasion?: Never Total Score: 1 RADHA-7 AMB Questionnaire RADHA-7 Date RADHA - 7 assessed: 04/28/23 Feeling nervous, anxious, or on edge: 1 = Several days Not being able to stop or control worryin = Nearly every day Worrying too much about different things: 3 = Nearly every day Trouble relaxin = Nearly every day Being so restless that it is hard to sit still: 3 = Nearly every day Becoming easily annoyed or irritable: 3 = Nearly every day Feeling afraid as if something awful might happen: 3 = Nearly every day Total RADHA-7 score (0-4 normal; 5-9 mild; 10-14 moderate; 15-21 severe): 19 Source: Developed by Drs. Lamont Gilbert, Lydia Kim, Brandin Singh and colleagues, with an educational francisco from [employer]. RADHA-7 Assessment Billing RADHA-7 Assessment Tool: RADHA-7 Assessment 36140 Review of Systems Const Details: Denies chills, Denies fatigue, Denies fever(s), Denies headache(s) and Denies weakness HEENT Denies change in vision, Denies dizziness, Denies headache(s), Denies hearing loss, Denies nasal congestion, Denies sinus pain, Denies sinus pressure and Denies sore throat Card Denies chest pain, Denies lightheadedness, Denies dyspnea and Denies other (palpitations) Resp Denies cough, Denies dyspnea and Denies wheezing GI Denies abdominal pain, Denies melena, Denies hematochezia, Denies change in bowel habits, Denies dyspepsia and Denies nausea Denies hematuria and Denies dysuria Musc Reports as per HPI Skin/Breast Denies rash, Denies unusual bruising and Denies wounds Neuro Denies abnormal gait, Denies dizziness, Denies headache(s), Denies memory loss, Denies numbness, Denies Sensory deficit (Neuro), Denies tingling and Denies weakness Psych Denies anxiety, Denies depression and Denies memory loss Endo Denies cold intolerance, Denies fatigue, Denies heat intolerance, Denies polydipsia and Denies polyuria Stepan/Lymph Denies easy bleeding and Denies easy bruising Aller/Immun Denies wheezing Physical exam (Primary Care) Vital Signs: Last Vital Signs Pulse 67 04/28/23 14:58 Resp 13 04/28/23 14:58 BP 120/80 04/28/23 14:58 Pulse Ox 99 04/28/23 14:58 Oxygen Delivery Method Room Air 04/28/23 14:58 BMI result Body Mass Index 27.7 Tobacco/Smoking Status: Tobacco use Status Tobacco use date assessed 06/30/22 04/28/23 14:56 Patient Tobacco Use Status Never used Tobacco 04/28/23 14:56 e-Cigarette/Vaping Use Never Used 04/28/23 14:56 Depression Screening Interpretation: Positive Depression Screening Follow-up: Existing condition, In treatment and Change in Medication Thrive Assessment: Date of Thrive Assessment Date Thrive assessed 06/30/22 04/28/23 14:56 Currently or been in a relationship where the following occur: no concerns reported Const Other: General: no acute distress, well developed, alert and awake Nutritional Appearance: well nourished Orientation/consciousness: patient oriented x3 [facility] Head: Yes normocephalic and Yes atraumatic Ears: hearing grossly normal bilaterally and TM's normal bilaterally General nose exam: Normal external nose present and Normal nares present Mouth: Normal oral and palatal mucosa present and moist mucous membranes Teeth and gingiva: dentition normal Throat: Yes oropharynx normal Eyes Pupils: Equal, round and reactive pupils present and Pupil accommodation reflex normal EOM: EOMs intact bilaterally Neck Neck: Yes normal visual inspection, Yes no lymphadenopathy and Yes trachea midline Thyroid: Thyroid normal Carotids: no bruits Lymphatic: no lymphadenopathy noted Chest Chest palpation & inspection: normal inspection of the chest Resp Effort & Inspection: normal respiratory effort Auscultation: clear to auscultation bilaterally Cardio Rate: regular rate Rhythm: regular rhythm Heart sounds: S1 normal heart sound present, S2 normal heart sound present, no gallops, no murmurs and no rubs Bruits: no abdominal aortic bruits and no carotid bruits GI Palpation (GI): No Abdominal aortic bruit present, Soft to palpation, nontender, No hepatosplenomegaly present and No Rebound tenderness present Auscultation: normal bowel sounds General: Yes no CVA tenderness Back/Spine/Pelvis Back: no CVA tenderness Cervical Spine: cervical ROM normal and No Cervical spine tenderness Thoracic/Lumbar Spine: thoraco-lumbar ROM normal, No pain with thoraco-lumbar ROM, No thoracic spinal tenderness and No lumbar spinal tenderness Skin General: warm and dry. Normal skin color. Normal skin turgor Lesions: no lesions Rashes: no rashes Trauma: no lacerations or abrasions Wounds: no wounds Nails: normal Neuro General: patient oriented x3, gait normal and CN's II-XI intact bilaterally Cranial nerves: Yes Equal, round and reactive pupils present Cognition (Neuro): normal cognition Gait exam (Neuro): Normal gait present Motor exam (neuro): 5/5 motor strength present throughout Sensory Exam: No Sensory deficit (Neuro) Deep tendon reflexes (DTR's): Right patellar reflex intensity grade: 2+ and Left patellar reflex intensity grade: 2+ Extrem General: Yes normal to inspection, No edema and No calf tenderness Psych Appearance: grossly normal Affect: normal affect Attitude: cooperative Thought process: Normal thought process present Assessment and Plan Assessment & Plan (1) Normal physical examination, routine: Code(s): Z00.00 - Encounter for general adult medical examination without abnormal findings Plan: No significant physical restrictions or limitations noted She follow-up with PCP in 4-6 weeks for anxiety and depression Return sooner with symptoms or concerns Verbalized understanding and agreed with treatment plan. (2) Back pain: Code(s): M54.9 - Dorsalgia, unspecified Plan: Reports chronic upper and lower back pain. She was evaluated for back pain at the [facility] [place] [facility] last week and was prescribed Ibuprofen and Cyclobenzaprine which provides some relief. Continue with current treatment regimen Warm/cold compresses encouraged Follow-up with worsening or new symptoms Verbalized understanding and agreed with treatment plan. (3) Anxiety and depression: Code(s): F41.9 - Anxiety disorder, unspecified; F32.A - Depression, unspecified Plan: Reports anxiety and depression symptoms. However, today is a good day, she noted. She resumed taking Fluoxetine and Buspirone last Thursday, after 1 year of not taking the medications. PHQ-9 and RADHA-7 scores revealed mild depression and severe anxiety respectively Buspirone increased to 5 mg twice daily. Advised to take buspirone and fluoxetine as prescribed Routine exercise encouraged Follow-up with PCP in 4-6 weeks or return sooner with new or worsening symptoms Verbalized understanding and agreed with treatment plan. (4) Screening for osteoporosis: Code(s): Z13.820 - Encounter for screening for osteoporosis Plan: She notes that her last colonoscopy was over 10 years ago: had benign polyps removed Referred to [facility] for colonoscopy (5) Vaccine counseling: Code(s): Z71.85 - Encounter for immunization safety counseling Plan: She notes that she has never had the shingrex vaccines and does not intend to get vaccinated Instructed on the importance of vaccination and encouraged to get the Shingrix vaccines He notes that I'll think about it. Orders: Orders T Spot TB Today Z00.00 - Encounter for general adult medical examination without abnormal findings Referrals Gastroenterology Referral Z12.11 - Encounter for screening for malignant neoplasm of colon Medications: Changed From buspirone 5 mg PO BEDTIME 30 days 30 tabs 2RF To buspirone 5 mg PO BID 30 days 60 tabs 2RF Coding Level of Care Code Est Pt Prev Care 40-64y(54382) Diagnoses Normal physical examination, routine Z00.00 Back pain M54.9 Anxiety and depression F41.9; F32.A Screening for osteoporosis Z13.820 Vaccine counseling Z71.85 Additional Codes RADHA-7 Assessment Billing - RADHA-7 Assessment Tool: RADHA-7 Assessment 69923 ([id number])
[2023-04-28 14:58] VITALS: BP 120/80; PULSE 67; RESP 13; O2SAT 99; BMI 27.7
== END 2023-04-28 15:42 | disposition home or self-care (01) ==
PROVIDERS: PCP Family Medicine; Visit Provider Nurse Practitioner Family
DX: Z00.00 Encounter for general adult medical examination without abnormal findings (principal); M54.9 Dorsalgia, unspecified; F41.9 Anxiety disorder, unspecified; F32.A Depression, unspecified; Z13.820 Encounter for screening for osteoporosis; Z71.85 Encounter for immunization safety counseling
CPT/HCPCS: 96127; 99396

== ENCOUNTER 2023-05-06 06:06 | Outpatient (REF) | payer OTHER, SELFPAY ==
[2023-05-06 07:14] LABS: Alanine Aminotransferase 12 U/L (0-31); Albumin Level 3.9 g/dL (3.5-5.0); Alkaline Phosphatase 55 U/L (39-117); Anion Gap 10 (12-20); Aspartate Amino Transferase 13 U/L (5-31); Bilirubin Total 0.3 mg/dL (0.0-1.0); Blood Urea Nitrogen 11 mg/dL (9-16); Calcium 10.4 mg/dL (8.4-10.2); Carbon Dioxide 28 mmol/L (22-29); Chloride 111 mmol/L (96-108); Estimated Glomerular Filt Rate > 60; Glucose Random 109 mg/dL (60-115); Lipase 265 U/L (8-78); Potassium 4.4 mmol/L (3.3-5.1); Sodium 145 mmol/L (135-145); Total Protein 6.6 g/dL (6.5-8.0)
[2023-05-08 10:23] LABS: TS Negative Control Passed; TS Panel A 1; TS Panel B 2; TS Positive Control Passed; TSpotTB Negative (Negative)
== END 2023-05-06 06:07 | disposition home or self-care (01) ==
LOC: HO.LAB 06:06
PROVIDERS: Nurse Practitioner Family; PCP Family Medicine; Visit Provider Family Medicine
DX: Z00.00 Encounter for general adult medical examination without abnormal findings (principal); Z11.1 Encounter for screening for respiratory tuberculosis; R10.9 Unspecified abdominal pain; K76.89 Other specified diseases of liver; R74.8 Abnormal levels of other serum enzymes
CPT/HCPCS: 36415; 80053; 83690; 86481

== ENCOUNTER → 2023-09-22 16:22 | Outpatient (AMB) | payer OTHER, SELFPAY ==
--- NOTE | 2023-09-22 16:35 | MHC.PC.OV ---
Vital Signs 09/22/23 16:36 Height 5 ft 7 in Weight 178 lb BMI 27.9 BP 108/68 Blood Pressure Location Lt brachial Position Sitting Pulse 91 Pulse Source Pulse Oximeter Pulse Oximetry (%) 98 Oxygen Delivery Method Room Air Intake Visit Reasons: knee/breast pain Intake Note: Patient is here with left knee pain, and bilateral breast pain for about 4 months ago. Allergies No Known Allergies [No Known Allergies*] Allergy (Verified 09/22/23 16:39) Tobacco use date assessed: 09/22/23 Dental Screening Dental Screen Date: 09/22/23 Did you have a dental visit in the last 12 months?: No Did you have a dental problem in the last 6 months where you did not have access to dental care?: No Was dental information given to patient?: Patient has dentist HPI knee/breast pain HPI Details 57 y/o female presents today with complaints of L knee pain. She also has complaints of bilateral breast pain x4 months. Mammogram September 2022 was negative. Pt reports hx of total hysterectomy. PFSH Medical History Spondylosis without myelopathy or radiculopathy, lumbar region Osteoarthritis Constipation Hypotension Surgical History History of open reduction and internal fixation (ORIF) procedure (~2016) H/O: hysterectomy (~2014) History of lumpectomy of left breast H/O tubal ligation Hx of tonsillectomy Family History (Updated 04/28/23 @ 15:05 by Marbella Lai CMA) Father Stomach cancer Mother Diabetes HTN (hypertension) Sister Breast cancer Social History (Updated 04/28/23 @ 15:07 by Marbella Lai CMA) Household Members: Spouse Housing: House Alcohol intake: current Alcohol intake frequency: holidays/special occasions only Alcohol type: wine Patient Tobacco Use Status: Never used Tobacco e-Cigarette/Vaping Use: Never Used Second Hand Smoke Exposure: Yes Substance Use Type: Marijuana service: No Current occupational status: employed 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 Lamont Gilbert, Lydia Kim, Brandin Singh and colleagues, with an educational francisco from [employer]. Review of Systems Const Denies chills, Denies fatigue, Denies fever(s), Denies headache(s) and Denies weakness ENT Denies dizziness and Denies headache(s) Card Denies dyspnea Resp Denies cough, Denies dyspnea, Denies wheezing and Denies other (shortness of breath) Musc Denies numbness and Denies tingling Neuro Denies dizziness, Denies headache(s), Denies numbness, Denies tingling and Denies weakness Psych Denies anxiety and Denies depression Endo Denies fatigue Aller/Immun Denies wheezing Physical exam (Primary Care) Vital Signs: Last Vital Signs Pulse 91 09/22/23 16:36 BP 108/68 09/22/23 16:36 Pulse Ox 98 09/22/23 16:36 Oxygen Delivery Method Room Air 09/22/23 16:36 BMI result Body Mass Index 27.9 Tobacco/Smoking Status: Tobacco use Status Tobacco use date assessed 09/22/23 09/22/23 16:44 Patient Tobacco Use Status Never used Tobacco 09/22/23 16:44 e-Cigarette/Vaping Use Never Used 09/22/23 16:44 Thrive Assessment: Date of Thrive Assessment Date Thrive assessed 04/28/23 09/22/23 16:44 Const General: well developed; No acute distress Nutritional Appearance: well nourished Orientation/consciousness: patient oriented x3 HENMT Head: Yes normocephalic and Yes atraumatic Eyes General: appearance normal, both eyes and all related structures Pupils: Equal, round and reactive pupils present EOM: EOMs intact bilaterally Resp Effort & Inspection: normal respiratory effort Neuro General: patient oriented x3 and gait normal Cranial nerves: Yes Equal, round and reactive pupils present Psych Affect: normal affect Assessment and Plan Assessment & Plan (1) Left knee pain: Code(s): M25.562 - Pain in left knee Plan: Left?knee?pain?and?crepitus?with?patellar?mobility Likely?some?posterior?patellar?inflammation?and?possible?patellofemoral?syndrome Start?physical?therapy Ice/heat Tylenol?as?recommended (2) Pain of both breasts: Code(s): N64.4 - Mastodynia Plan: Bilateral?breast?pain Patient?is?past?menopause?and?had?hysterectomy?years?ago No?focal?or?lateral?symptoms Advised?good?support Her?last?mammogram?1?year?ago?was?negative.??She?is?due?for?another?mammogram. Mammogram?is?ordered Will?follow-up Orders: Orders PT Evaluation and Treatment Today M25.562 - Pain in left knee XR knee LT 3V Today M25.562 - Pain in left knee MM tomosynthesis screening BI Today Z12.31 - Encounter for screening mammogram for malignant neoplasm of breast Coding Level of Care Code Est Pt Level 3 (34770) Diagnoses Left knee pain M25.562 Pain of both breasts N64.4
[2023-09-22 16:36] VITALS: BP 108/68; PULSE 91; O2SAT 98; BMI 27.9
== END ==
PROVIDERS: PCP Family Medicine; Visit Provider Family Medicine
DX: M25.562 Pain in left knee (principal); N64.4 Mastodynia
CPT/HCPCS: 99213

== ENCOUNTER 2023-10-01 09:29 | Outpatient (REF) | payer OTHER, SELFPAY ==
--- NOTE | ~2023-10-01 | XR_ITS ---
EXAMINATION: XR KNEE, LEFT CLINICAL INFORMATION: Pain. COMPARISON: None available. TECHNIQUE: AP, lateral and sunrise views of the left knee are submitted. FINDINGS: Bony alignment and mineralization are normal. The lateral, medial and patellofemoral joint space compartments are well-maintained. There is minimal peripheral osteophyte formation of the lateral and medial joint space compartments. There is a small enthesophyte arising from the upper pole of the patella at the quadriceps tendon insertion. 2 intact orthopedic screws and orthopedic cement are identified within the tibial plateau, without failure or loosening noted. No fracture, dislocation or significant joint effusion is seen. There is no foreign body. XR/XR knee LT 3V IMPRESSION: 1. There is trace osteoarthritic change of the lateral medial joint space compartments of the left knee. 2. There are postoperative changes, without hardware failure or loosening noted. 3. No left knee fracture, dislocation or joint effusion is seen.
== END 2023-10-01 09:30 | disposition home or self-care (01) ==
LOC: HO.XRAY 09:29
PROVIDERS: PCP Family Medicine; Visit Provider Family Medicine
DX: M25.562 Pain in left knee (principal)
CPT/HCPCS: 73562

== ENCOUNTER 2023-10-08 14:46 | Outpatient (REF) | payer OTHER, SELFPAY | END 2023-10-08 14:47 | disposition home or self-care (01) | LOC: HO.MAMMO 14:46 | PROVIDERS: PCP Family Medicine; Visit Provider Family Medicine | DX: Z12.31 Encounter for screening mammogram for malignant neoplasm of breast (principal) | CPT/HCPCS: 77063; 77067 ==

== ENCOUNTER → 2023-10-08 15:00 | Outpatient (BNV) | payer OTHER, SELFPAY | PROVIDERS: PCP Family Medicine; Visit Provider Radiology Diagnostic Radiology | DX: Z12.31 Encounter for screening mammogram for malignant neoplasm of breast (principal) | CPT/HCPCS: 77063; 77067 ==

== ENCOUNTER 2023-10-28 15:00 | Outpatient (RCR) | payer OTHER, SELFPAY ==
--- NOTE | 2023-09-25 16:04 | MHC.PT.EP ---
[facility] [place] [facility] [place] [facility] [address] Greg Mcclellan [address] [phone] F: [phone] F: [phone] F: [phone] F: [phone] Physical Therapy Plan of Care Date of Evaluation: 09/25/23 Date of Surgery: Diagnosis: LEFT knee pain (Hx surgery L prox tibia ORIF 2015) (RS) Assessment: Patient is a pleasant 57 y.o. female who is referred to PT by Dr. Blaise Esparza MD, with Dx of LEFT knee pain. She has a history of surgery with ORIF in L tibia in 2016. She also reports recent early mcfp 4 months ago with change in her activity level due to this which could contribute to muscle imbalances. Patient impairments include localized swelling to medial knee, weakness in L knee and hip, antalgic gait. atient current functional limitations are gardening, walking outside (unlevel surfaces, hills), reciprocal stairs, prolonged standing to cook. Patient will benefit from skilled PT to address aforementioned impairments and functional limitations to meet established goals. Frequency and Duration: The patient will be seen 1-2x/week for 4 weeks Short Term Goals: 2 weeks Patient demonstrates consistency and independence with HEP to self manage symptoms. Trademark Attorney Goals: 4 weeks Patient presents with increased L knee quad strength 5/5 to be able to ascend/descend reciprocal stairs. Patient presents with increased L glute med strength 4+/5 to be able to ambulate outdoors with improved stability. Treatment Plan: Modalities to reduce pain, spasms and effusion. Manual therapy to restore motion and function. Therapeutic exercise to improve strength and flexibility. Neuromuscular re-education for posture and balance. Therapeutic activities to return to functional activities of daily living. Electronically signed by: Etelvina Crowe, PT, DPT Please sign and return to therapist. Thank you for your referral.
--- NOTE | 2023-12-10 10:04 | MHC.PT.DC ---
[facility] [place] [facility] [place] Office [place] Office [address] Greg Mcclellan [address] [phone] F: [phone] F: [phone] F: [phone] F: [phone] Physical Therapy Discharge Report Diagnosis: LEFT knee pain (Hx surgery L prox tibia ORIF 2016) (RS) Date of Surgery: Date of Evaluation: 09/25/23 Date of Discharge: 12/10/23 Treatments to Date: 4 Cancellations to Date: 3 No Shows to Date: 0 Discharge Status: Independent with HEP Patient Elected to Stop Discharge Summary: Anali is discharged from PT at this time as she ceased attending on her own accord, though I feel more PT would have been beneficial for her recovery. During her last PT treatment on 10/28/23 the assessment reads, Anali c/o more pain today so I changed her program to perform mainly NWBing activities. She responded better to this but did need cues to activate quad and avoid compensations. I only had her perform sit to stand since this is a functional movement she is doing daily and I used a stronger band to activate glute med and she reported no knee pain when using band for sit to stand. I educate her how strengthening her hip will help reduce pain and stress to her knee. Encouarged her to only do the exercises we did today at home, focus on lying down exercises. Electronically signed by: Etelvina Crowe, PT, DPT Please sign and return to therapist. Thank you for your referral.
== END 2023-12-10 10:04 | disposition home or self-care (01) ==
LOC: HO.PT 15:00
PROVIDERS: PCP Family Medicine; Visit Provider Family Medicine
DX: M25.562 Pain in left knee (principal)
CPT/HCPCS: 97110; 97161; 97530

== ENCOUNTER 2024-10-11 08:33 | Outpatient (REF) | payer OTHER, SELFPAY ==
--- OUTSIDE RECORDS SUMMARY | 2024-10-11 08:56 | XMS_ITS | Clinical Summary ---
Author Organization [facility] Address [address] [place] [address] Phone Care Team Providers Care Fitness Attendant Name Role Phone Thalia Benavides Primary Care Provider [phone] Social History Tobacco Use Types Packs/Day Years Used Date Smoking Tobacco: Never Assessed Comments Unknown Sex and Gender Information Value Date Recorded Sex Assigned at Female 06/17/2024 12:38 PM EST Legal Sex Female 8:08 AM EST Gender Identity Female 06/17/2024 12:38 PM EST Sexual Orientation Straight 06/17/2024 12 :38 PM EST Plan of Treatment Health Maintenance Due Date Last Done Comments Breast Cancer Screening 1965 DTaP,Tdap,and Td Vaccines (1 - Tdap) 12/04/1983 Hepatitis B Vaccines (1 of 3 - 19+ 3-dose series) 12/04/1983 Cervical Cancer Screening: P ap Smear 1985 Pneumococcal Vaccine: 50+ Ye ars (1 of 1 - PCV) 2014 Zoster Vaccines (1 of 2) 2014 COVID-19 Vaccine (2023-2 5 season) 2024 Colorectal Cancer Screening: Colonoscopy 05/24/2024 Depression Screening 05/24/2024 HIV Screening 05/24/2024 Hepatitis C Screening 05/24/2024 Social Influencers of Health Screening 05/24/2024 Influenza Vaccine (Season Ended) 2025 Osteoporosis Screening (Bone Density Screening) 06/27/2034 06/27/2024 RSV Immunization Adult Patie nts (1 - 1-dose 75+ series) 12/04/2039 HIB Vaccines Aged Out No longer eligi ble based on patient's age to complete this topic HPV Vaccines Aged Out No longer eligi ble based on patient's age to complete this topic Hepatitis A Vaccines Aged Out No long er eligible based on patient's age to complete this topic IPV Vaccines Aged Out No longer eligi ble based on patient's age to complete this topic MMR Vaccines Aged Out No longer eligi ble based on patient's age to complete this topic Meningococcal ACWY Vaccine Aged Out N o longer eligible based on patient's age to complete this topic Meningococcal B Vaccine Aged Out No l onger eligible based on patient's age to complete this topic Pneumococcal Vaccine: Pediat rics (0 to 5 Years) and At-Risk Patients (6 to 64 Years) Aged Out No longer eligi ble based on patient's age to complete this topic RSV Immunization Patients Un amber 20 months Aged Out No longer eligible b ased on patient's age to complete this topic Varicella Vaccines Aged Out No longer eligible based on patient's age to complete this topic Procedures Procedure Name Priority Date/Time Associated Diagnosis Comments BD BONE DENSITY DXA AXIAL SKELETON Routine 06/27/2024 8:42 AM EST Premature menopause from Last 3 Months or Most Recently Relevant to Health Maintenance Results * BD Bone Density DXA Axial Skeleton (06/27/2024 8:42 AM EST) Anatomical Region Laterality Modality Wrist, Hip, L-spine Bone Densito metry 06/28/2024 5:15 PM EST Impressions 06/28/2024 5:16 PM EST Osteopenia. ? [id number] -------- FINAL REPORT -------- Dictated By: Parvin Youssef Dictated Date: 06/28/2024 17:15 ET Assigned Physician: Parvin Youssef Reviewed and Electronically Signed By: Parvin Youssef Signed Date: 06/28/2024 17:16 ET Workstation ID: [id number] Transcribed By: Self Edit Transcribed Date: 06/28/2024 17:15 ET Narrative 06/28/2024 5:16 PM EST History: Low estrogen state due to menopause. Personal history of fracture. Comparison: No comparison imaging at this institution. Findings: Bone densitometry is performed utilizing dual energy x-ray absorptiometry (DXA) in the [employer] Prodigy unit. The lumbar spine and proximal femora are evaluated in the AP projection. The FRAX questionaire was completed. The results indicate low bone mass (osteopenia), with a lumbar spine T-score of -1.3. ??The Z score is -0.5, indicating bone mineral density within the range of normal for age. The detailed DEXA report will be mailed to the referring physician's office. [employer] FRAX: 10-year Probability of Fracture: Major Osteoporotic 6.0 percent ??Hip 0.2 percent. Procedure Note Parvin Youssef MD - 06/28/2024 History: Low estrogen state due to menopause. Personal history offracture. Comparison: No comparison imaging at this institution. Findings: Bone densitometry is performed utilizing dual energy x-ray absorptiometry(DXA) in the [employer] Prodigy unit. The lumbar spine and proximal femora areevaluated in the AP projection. The FRAX questionaire was completed. The results indicate low bone mass (osteopenia), with a lumbar spineT-score of - 1.3. The Z score is -0.5, indicating bone mineral densitywithin the range of normal for age. The detailed DEXA report will bemailed to the referring physician's office. [employer] FRAX: 10-year Probability of Fracture: Major Osteoporotic 6.0percent Hip 0.2 percent. IMPRESSION: Osteopenia. [id number] -------- FINAL REPORT -------- Dictated By: Parvin Youssef Dictated Date: 06/28/2024 17:15 ET Assigned Physician: Parvin Youssef Reviewed and Electronically Signed By: Parvin Youssef Signed Date: 06/28/2024 17:16 ET Workstation ID: [id number] Transcribed By: Self Edit Transcribed Date: 06/28/2024 17:[address] [facility] IMG DXA PROCEDURES Final Result from Last 3 Months or Most Recently Relevant to Health Maintenance Insurance [facility] [employer] Care Teams Fitness Attendant Relationship Specialty Start Date End Date Thalia Benavides [address] [facility] [address] [phone] PCP - General Family Medicine 05/30/24
[2024-10-11 10:07] LABS: Estimated Average Glucose 120 mg/dL; Hemoglobin A1C 139.2561 umol/L; Hemoglobin A1c % 5.8 % (<6.0)
[2024-10-11 10:24] LABS: Cholesterol 182 mg/dL (<200); HDL Cholesterol 48 mg/dL (>40); LDL Cholesterol Calculated 116 mg/dL (<100); Triglycerides 90 mg/dL (<150)
[2024-10-11 10:30] LABS: Thyroid Stimulating Hormone 2.08 uIU/mL (0.32-4.0)
== END 2024-10-11 08:34 | disposition home or self-care (01) ==
LOC: HO.LAB 08:33
PROVIDERS: PCP Nurse Practitioner Family; Visit Provider Nurse Practitioner Family
DX: E03.9 Hypothyroidism, unspecified (principal); E78.5 Hyperlipidemia, unspecified; N39.0 Urinary tract infection, site not specified; R73.03 Prediabetes
CPT/HCPCS: 36415; 80061; 83036; 84443; 87086

== ENCOUNTER 2024-10-13 14:42 | Outpatient (REF) | payer OTHER, SELFPAY ==
--- OUTSIDE RECORDS SUMMARY | 2024-10-13 16:42 | XMS_ITS | Clinical Summary ---
Author Organization [facility] Address [address] [place] [address] Phone Care Team Providers Care Keno Dealer Name Role Phone Thalia Benavides Primary Care Provider [phone] Social History Tobacco Use Types Packs/Day Years [...] Impressions 06/28/2024 5:16 PM EST Osteopenia. ? [id number] -------- FINAL REPORT -------- Dictated By: Parvin Youssef Dictated Date: 06/28/2024 17:15 ET Assigned Physician: Parvin Youssef Reviewed and Electronically Signed By: Parvin Youssef Signed Date: 06/28/2024 17:16 ET Workstation ID: [id number] Transcribed By: Self Edit Transcribed Date: 06/28/2024 17:15 ET Narrative 06/28/2024 5:16 PM EST History: Low estrogen state due to menopause. Personal history of fracture. Comparison: No comparison imaging at this institution. Findings: Bone densitometry is performed utilizing dual energy x-ray absorptiometry (DXA) in the [employer] Prodigy unit. The lumbar spine and proximal [...] Osteoporotic 6.0percent Hip 0.2 percent. IMPRESSION: Osteopenia. [id number] -------- FINAL REPORT -------- Dictated By: Parvin Youssef Dictated Date: 06/28/2024 17:15 ET Assigned Physician: Parvin Youssef Reviewed and Electronically Signed By: Parvin Youssef Signed Date: 06/28/2024 17:16 ET Workstation ID: [id number] Transcribed By: Self Edit Transcribed Date: 06/28/2024 17:15 ET [facility] IMG DXA PROCEDURES Final Result from Last 3 Months or Most Recently Relevant to Health Maintenance Insurance [facility] [employer] Care Teams Keno Dealer Relationship Specialty Start Date End Date Thalia Benavides [address] [facility] [address] [phone] PCP - General Family Medicine 05/30/24
== END 2024-10-13 14:43 | disposition home or self-care (01) ==
LOC: HO.MAMMO 14:42
PROVIDERS: PCP Nurse Practitioner Family; Visit Provider Family Medicine
DX: Z12.31 Encounter for screening mammogram for malignant neoplasm of breast (principal)
CPT/HCPCS: 77063; 77067

== ENCOUNTER → 2024-10-13 14:45 | Outpatient (BNV) | payer OTHER, SELFPAY | PROVIDERS: PCP Nurse Practitioner Family; Visit Provider Internal Medicine | DX: Z12.31 Encounter for screening mammogram for malignant neoplasm of breast (principal) | CPT/HCPCS: 77063; 77067 ==